=== PATIENT | male | born 1995 | race African-American/Black ===

== ENCOUNTER 2017-05-28 12:35 | Emergency (ER) | payer SELFPAY ==
[~2017-05-28] VITALS: Ht 180.3 cm; Wt 93.0 kg
[~2017-05-28 12:35] MED LIST: BACTRIM DS1 TAB PO; LORTAB 5 OR; LORTAB 5/3255 MG PO; NAPROSYN500 MG PO; NO MEDS; PROMETHAZINE25 MG PO; PROTONIX40 MG PO; ULTRAM50 M1 PO; ULTRAM50 MG PO; ZOFRAN4 MG/TAB PO
[2017-05-28] MEDS ORDERED: CEPHALEXIN500 M1 PO ×2 (14:09→15:00)
[2017-05-28] MEDS ORDERED: BACTRIM DS1 TAB PO ×2 (14:09→15:00)
[2017-05-28] MEDS ORDERED: MUPIROCIN21 LS ×2 (14:11→15:00)
[2017-05-28 14:22] VITALS: BP 144/80
== END 2017-05-28 15:08 | disposition home or self-care (01) | DRG 605 ==
LOC: ED 12:35
DX: S61.212A Laceration without foreign body of right middle finger without damage to nail, initial encounter (principal); S61.411A Laceration without foreign body of right hand, initial encounter; W22.8XXA Striking against or struck by other objects, initial encounter; Y92.89 Other specified places as the place of occurrence of the external cause; Y99.0 Civilian activity done for income or pay

== ENCOUNTER 2018-01-01 08:44 | Emergency (ER) | payer SELFPAY ==
[~2018-01-01] VITALS: Ht 180.3 cm; Wt 97.7 kg
[~2018-01-01 08:44] MED LIST changes: +CEPHALEXIN500 M1 PO; +MUPIROCIN21 LS
[2018-01-01 10:46] VITALS: BP 129/63
== END 2018-01-01 10:52 | disposition home or self-care (01) | DRG 103 ==
LOC: ED 08:44
DX: G43.909 Migraine, unspecified, not intractable, without status migrainosus (principal)